=== PATIENT | male | born 1950 | race Caucasian/White ===

== ENCOUNTER 2016-09-24 10:00 | Inpatient (IN) | payer MEDICARE ==
[2016-09-24] VITALS (10 sets, daily range): BP systolic 115–134; BP diastolic 70–80
[~2016-09-24] VITALS: Ht 182.9 cm; Wt 104.8 kg
[~2016-09-24 10:00] MED LIST: HYDROmorphone 2 MG/ML VIAL IV PRN; LIDOCAINE 1% 1 ML SYRINGE. ID PRN; MORPHINE SULFATE 2 MG/ML DISP.SYRIN. IV PRN; ONDANSETRON PF 4 MG/2 ML VIAL. IV PRN; PROCHLORPERAZINE 10 MG/2 ML VIAL. IV PRN; fentaNYL PF VIAL 100 MCG/2 ML VIAL IV PRN
[2016-09-24] MEDS: IV RINGERS,LACTATED 1000ML 1,000 ML IV SCH ×2 (11:12→17:23)
[2016-09-24] MEDS ORDERED: PROPOFOL 20 ML IV ONE (11:23)
[2016-09-24] MEDS ORDERED: ROCURONIUM 50 MG/5 ML VIAL. ONE ×2 (11:23→13:25)
[2016-09-24] MEDS ORDERED: ONDANSETRON PF 4 MG/2 ML VIAL. ONE (11:23)
[2016-09-24] MEDS ORDERED: LIDOCAINE 2% PF Vial for OR 5 ML VIAL. ONE (11:23)
[2016-09-24] MEDS ORDERED: fentaNYL PF VIAL 100 MCG/2 ML VIAL ONE ×2 (11:23→15:30)
[2016-09-24] MEDS ORDERED: DESFLURANE > 120 MINUTES IH ONE (11:23)
[2016-09-24] MEDS ORDERED: DEXAMETHASONE SOD PHOS 20 MG/5 ML VIAL. ONE (11:23)
[2016-09-24] MEDS ORDERED: MIDAZOLAM HCL/PF 2 MG/2 ML VIAL. ONE (12:18)
[2016-09-24] MEDS ORDERED: PHENYLEPHRINE in 0.9% NACL PF 1 MG/10 ML DISP.SYRIN. IV ONE (12:46)
[2016-09-24] MEDS ORDERED: ePHEDrine PF IN SALINE 50 MG/5 ML DISP.SYRIN IV ONE (13:20)
[2016-09-24] MEDS ORDERED: LIDOCAINE 2% TOPICAL JELLY 30GM TUBE. TP ONE (13:42)
[2016-09-24] MEDS ORDERED: GLYCOPYRROLATE 1 MG/5 ML VIAL. ONE (13:43)
[2016-09-24] MEDS ORDERED: NEOSTIGMINE METHYLSULFATE 5 MG/5 ML SYRINGE. ONE (13:44)
[2016-09-24] MEDS ORDERED: MORPHINE SULFATE 10 MG/ML VIAL. ONE (14:03)
[2016-09-24] MEDS ORDERED: 0.9 % SODIUM CHLORIDE 10 ML DISP.SYRIN. IV PRN (15:30)
[2016-09-24] MEDS ORDERED: diphenhydrAMINE 50 MG/ML VIAL IV PRN (15:30)
--- NOTE | 2016-09-24 15:32 | RAD ---
Indication: Postop sigmoid resection. Time of exam 1519 hours. A portable view of the abdomen was obtained. A surgical drain overlies the pelvis. No unexpected radiopaque foreign object is identified. The bowel gas pattern is unremarkable. Impression: No acute feature detected.
--- NOTE | 2016-09-24 16:08 | PDOC ---
BRIEF OPERATIVE NOTE Date: Sep 24, 2016 Pre-Op Diagnosis carcinoma sigmoid colon Post-Op Diagnosis same Procedure Performed rigid procto sigmoid resection "ghost" ileostomy Surgeon Everardo ZURITA Anesthesia Type: General Blood Loss 100cc IV Fluid 2100cc Urine Output 200cc Specimens Obtained sigmoid colon Findings large mass, mid-distal sigmoid Complications none ANÍBAL MUKHERJEE MD Sep 24, 2016 16:08
[2016-09-24] MEDS: fentaNYL PF VIAL 100 MCG/2 ML VIAL IV PRN ×2 (16:37→17:23)
[2016-09-24] MEDS: POTASSIUM CL 20MEQ-0.45% NACL 1,000 ML IV SCH (20:19)
[2016-09-25 03:20] VITALS: BP 105/68
[2016-09-25] MEDS: POTASSIUM CL 20MEQ-0.45% NACL 1,000 ML IV SCH ×2 (05:27→16:01)
[2016-09-25 07:00] VITALS: BP 116/73
[2016-09-25] MEDS: ENOXAPARIN 40 MG/0.4 ML SYRINGE. SQ SCH (08:29)
[2016-09-25 11:00] VITALS: BP_SYST 111; BP_SYST 118; BP_DIAS 71; BP_DIAS 75
[2016-09-25] MEDS: ONDANSETRON PF 4 MG/2 ML VIAL. IV PRN (12:45)
--- NOTE | 2016-09-25 12:45 | PDOC ---
LILI CARMONA APRN 09/25/16 1244: SURGICAL PROGRESS NOTE Subjective some nausea this AM no flatus pain managed Vital Signs Vital Signs Date Time Temp Pulse Resp B/P (MAP) Pulse Ox O2 Delivery O2 Flow Rate FiO2 09/25/16 07:45 Nasal Cannula 2.0 09/25/16 07:00 97.9 79 18 116/73 (87) 96 97.9 I&O Intake and Output 09/25/16 07:00 Intake Total 3110 ml Output Total 1370 ml Balance 1740 ml Intake Oral 10 ml IV Total 3100 ml Output Urine Total 1240 ml Drainage Total 30 ml Estimated Blood Loss 100 ml PATIENT HAS A MAYORGA: Yes (dc POD#2) General: Alert, Oriented X3, Cooperative, No acute distress Abdomen: Soft, Other (incision dressing dry, 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
[2016-09-25 15:00] VITALS: BP 131/79
[2016-09-25 19:05] VITALS: BP 126/73
[2016-09-25 23:25] VITALS: BP 158/81
[2016-09-26 03:18] VITALS: BP 117/81
[2016-09-26 07:41] VITALS: BP 132/76
[2016-09-26] MEDS: ENOXAPARIN 40 MG/0.4 ML SYRINGE. SQ SCH (08:20)
[2016-09-26] MEDS: POTASSIUM CL 20MEQ-0.45% NACL 1,000 ML IV SCH ×3 (08:20→20:37)
[2016-09-26 10:35] VITALS: BP 128/85
[2016-09-26] MEDS: ONDANSETRON PF 4 MG/2 ML VIAL. IV PRN (11:34)
--- NOTE | 2016-09-26 13:18 | PDOC ---
SURGICAL PROGRESS NOTE Subjective up to chair a little nausea at end of his walk, otherwise doing well Vital Signs Vital Signs Date Time Temp Pulse Resp B/P (MAP) Pulse Ox O2 Delivery O2 Flow Rate FiO2 09/26/16 10:35 98.0 82 20 128/85 (99) 94 Nasal Cannula 2.5 98.0 I&O Intake and Output 09/26/16 06:59 Intake Total 120 ml Output Total 2295 ml Balance -2175 ml Intake Oral 120 ml Output Urine Total 2250 ml Drainage Total 45 ml PATIENT HAS A MAYORGA: No General: Alert, Oriented X3, No acute distress Abdomen: Soft Assessment/Plan POD 2 sigmoid resection start clears Dr Cruz to follow over the weekend Problems: ANÍBAL MUKHERJEE MD Sep 26, 2016 13:18
[2016-09-26 15:01] VITALS: BP 137/85
[2016-09-26 19:00] VITALS: BP 147/91
[2016-09-26 23:00] VITALS: BP 137/80
[2016-09-27 03:00] VITALS: BP 125/86
[2016-09-27 07:00] VITALS: BP 144/86
[2016-09-27 07:59] LABS: CREATININE 0.9 mg/dL (0.7-1.3); GFR 84.2
[2016-09-27] MEDS: ENOXAPARIN 40 MG/0.4 ML SYRINGE. SQ SCH (09:13)
[2016-09-27] MEDS: POTASSIUM CL 20MEQ-0.45% NACL 1,000 ML IV SCH ×2 (09:14→18:24)
--- NOTE | 2016-09-27 10:04 | PDOC ---
LILI CARMONA APRN 09/27/16 1004: SURGICAL PROGRESS NOTE Subjective nausea, bloating with clears no flatus Vital Signs Vital Signs Date Time Temp Pulse Resp B/P (MAP) Pulse Ox O2 Delivery O2 Flow Rate FiO2 09/27/16 09:12 93 Nasal Cannula 2.5 09/27/16 07:00 97.5 82 18 144/86 (105) 97.5 I&O Intake and Output 09/27/16 06:59 Intake Total 1300 ml Output Total 1210 ml Balance 90 ml IV Total 1300 ml Output Urine Total 1200 ml Drainage Total 10 ml # Voids 1 PATIENT HAS A MAYORGA: No General: Alert, Oriented X3, Cooperative, No acute distress Abdomen: Soft, Other (dressing dry, keshav serosang) Labs Laboratory Tests Test 09/27/16 07:01 Creatinine 0.9 mg/dL (0.7-1.3) Estimated GFR (Cockcroft-Gault) 84.2 Laboratory Tests Test 09/27/16 07:01 Creatinine 0.9 mg/dL (0.7-1.3) Estimated GFR (Cockcroft-Gault) 84.2 Assessment/Plan POD#3 sigmoid resection await bowel function, back down to ice chips/sips due to nausea, distention Problems: ALTHEA SHAH MD 09/27/16 1652: SURGICAL PROGRESS NOTE Assessment/Plan Agree with above Problems: LILI CARMONA APRN Sep 27, 2016 10:04 ALTHEA SHAH MD Sep 27, 2016 16:52
[2016-09-27 11:00] VITALS: BP 155/96
[2016-09-27] MEDS: ONDANSETRON PF 4 MG/2 ML VIAL. IV PRN (13:14)
[2016-09-27 15:01] VITALS: BP 152/93
[2016-09-27 19:25] VITALS: BP 148/95
[2016-09-27 23:20] VITALS: BP 149/94
[2016-09-28] MEDS: ONDANSETRON PF 4 MG/2 ML VIAL. IV PRN ×2 (04:44→10:23)
[2016-09-28] MEDS: POTASSIUM CL 20MEQ-0.45% NACL 1,000 ML IV SCH ×3 (04:44→23:23)
[2016-09-28 07:00] VITALS: BP 152/110
--- NOTE | 2016-09-28 09:02 | PDOC ---
LILI CARMONA APRN 09/28/16 0902: SURGICAL PROGRESS NOTE Subjective + flatus no n/v some burning with urination Vital Signs Vital Signs Date Time Temp Pulse Resp B/P (MAP) Pulse Ox O2 Delivery O2 Flow Rate FiO2 09/28/16 07:00 98.5 100 20 152/110 (124) 94 Room Air 98.5 09/27/16 09:12 2.5 I&O Intake and Output 09/28/16 07:00 Intake Total 1203.5 ml Output Total 1930 ml Balance -726.5 ml Intake Oral 25 ml IV Total 1178.5 ml Output Urine Total 1850 ml Drainage Total 80 ml PATIENT HAS A MAYORGA: No General: Alert, Oriented X3, Cooperative, No acute distress Abdomen: Soft, Other (incision dressing dry, BRYSON serosang ) Labs Laboratory Tests Test 09/27/16 07:01 Creatinine 0.9 mg/dL (0.7-1.3) Estimated GFR (Cockcroft-Gault) 84.2 Problem List s/p sigmoid resection some bowel function, start clears increase activity Problems: ALTHEA SHAH MD 09/28/16 1134: SURGICAL PROGRESS NOTE Assessment/Plan Agree with above Problems: LILI CARMONA APRN Sep 28, 2016 09:02 ALTHEA SHAH MD Sep 28, 2016 11:34
[2016-09-28] MEDS: ENOXAPARIN 40 MG/0.4 ML SYRINGE. SQ SCH ×2 (09:45→10:23)
[2016-09-28 11:00] VITALS: BP 162/98
[2016-09-28 15:00] VITALS: BP 151/97
[2016-09-28 19:00] VITALS: BP 142/98
[2016-09-28 23:00] VITALS: BP 161/117
[2016-09-29 03:00] VITALS: BP 164/117
[2016-09-29] MEDS: ONDANSETRON PF 4 MG/2 ML VIAL. IV PRN ×2 (03:41→15:56)
[2016-09-29 07:00] VITALS: BP 162/107
[2016-09-29 09:32] LABS: BASO % 0 % (0-3); EOS % 0 % (0-3); HEMATOCRIT 43.4 % (39.0-53.0); HEMOGLOBIN 14.9 g/dL (13.0-17.5); LYMPH # 1.1 x10^3/uL (1.0-4.8); LYMPH % 10 % (24-48); MEAN CORPUSCULAR HEMOGLOBIN 28 pg (25-35); MEAN CORPUSCULAR HGB CONC 34 g/dL (31-37); MEAN CORPUSCULAR VOLUME 83 fL (79-100); MONO % 9 % (0-9); NEUT % 81 % (31-73); PLATELET COUNT 280 x10^3/uL (140-400); RED BLOOD COUNT 5.25 x10^6/uL (4.30-5.70); RED CELL DISTRIBUTION WIDTH 14.1 % (11.5-14.5); WHITE BLOOD COUNT 11.2 x10^3/uL (4.0-11.0)
[2016-09-29 09:39] LABS: CALCIUM 8.1 mg/dL (8.5-10.1); CREATININE 0.9 mg/dL (0.7-1.3); GFR 84.2; POTASSIUM 4.6 mmol/L (3.5-5.1)
[2016-09-29] MEDS: ENOXAPARIN 40 MG/0.4 ML SYRINGE. SQ SCH (10:02)
[2016-09-29] MEDS: POTASSIUM CL 20MEQ-0.45% NACL 1,000 ML IV SCH ×2 (10:02→21:23)
[2016-09-29 11:06] VITALS: BP 166/96
--- NOTE | 2016-09-29 12:36 | PDOC ---
LILI CARMONA CANOPY INSPECTOR 09/29/16 1236: SURGICAL PROGRESS NOTE Subjective sitting in bathroom, getting ready to shower some intermittent nausea, yesterday liquids were ok although today says has not taken much today, does not make him feel good he was very brief and short, he was headed to bathroom Vital Signs Vital Signs Date Time Temp Pulse Resp B/P (MAP) Pulse Ox O2 Delivery O2 Flow Rate FiO2 09/29/16 11:06 98.1 91 18 166/96 (119) 94 Room Air 98.1 I&O Intake and Output 09/29/16 07:00 Output Total 900 ml Balance -900 ml Output Urine Total 900 ml # Voids 1 General: Alert, Oriented X3, Cooperative, No acute distress Abdomen: Soft, Other (keshav serosang) Labs Laboratory Tests Test 09/29/16 08:50 White Blood Count 11.2 x10^3/uL (4.0-11.0) Red Blood Count 5.25 x10^6/uL (4.30-5.70) Hemoglobin 14.9 g/dL (13.0-17.5) Hematocrit 43.4 % (39.0-53.0) Mean Corpuscular Volume 83 fL (79-100) Mean Corpuscular Hemoglobin 28 pg (25-35) Mean Corpuscular Hemoglobin Concent 34 g/dL (31-37) Red Cell Distribution Width 14.1 % (11.5-14.5) Platelet Count 280 x10^3/uL (140-400) Neutrophils (%) (Auto) 81 % (31-73) Lymphocytes (%) (Auto) 10 % (24-48) Monocytes (%) (Auto) 9 % (0-9) Eosinophils (%) (Auto) 0 % (0-3) Basophils (%) (Auto) 0 % (0-3) Neutrophils # (Auto) 9.1 x10^3uL (1.8-7.7) Lymphocytes # (Auto) 1.1 x10^3/uL (1.0-4.8) Monocytes # (Auto) 1.0 x10^3/uL (0.0-1.1) Eosinophils # (Auto) 0.0 x10^3/uL (0.0-0.7) Basophils # (Auto) 0.0 x10^3/uL (0.0-0.2) Sodium Level 135 mmol/L (136-145) Potassium Level 4.6 mmol/L (3.5-5.1) Chloride Level 99 mmol/L (98-107) Carbon Dioxide Level 27 mmol/L (21-32) Anion Gap 9 (6-14) Blood Urea Nitrogen 14 mg/dL (8-26) Creatinine 0.9 mg/dL (0.7-1.3) Estimated GFR (Cockcroft-Gault) 84.2 Glucose Level 103 mg/dL (70-99) Calcium Level 8.1 mg/dL (8.5-10.1) Laboratory Tests Test 09/29/16 08:50 White Blood Count 11.2 x10^3/uL (4.0-11.0) Red Blood Count 5.25 x10^6/uL (4.30-5.70) Hemoglobin 14.9 g/dL (13.0-17.5) Hematocrit 43.4 % (39.0-53.0) Mean Corpuscular Volume 83 fL (79-100) Mean Corpuscular Hemoglobin 28 pg (25-35) Mean Corpuscular Hemoglobin Concent 34 g/dL (31-37) Red Cell Distribution Width 14.1 % (11.5-14.5) Platelet Count 280 x10^3/uL (140-400) Neutrophils (%) (Auto) 81 % (31-73) Lymphocytes (%) (Auto) 10 % (24-48) Monocytes (%) (Auto) 9 % (0-9) Eosinophils (%) (Auto) 0 % (0-3) Basophils (%) (Auto) 0 % (0-3) Neutrophils # (Auto) 9.1 x10^3uL (1.8-7.7) Lymphocytes # (Auto) 1.1 x10^3/uL (1.0-4.8) Monocytes # (Auto) 1.0 x10^3/uL (0.0-1.1) Eosinophils # (Auto) 0.0 x10^3/uL (0.0-0.7) Basophils # (Auto) 0.0 x10^3/uL (0.0-0.2) Sodium Level 135 mmol/L (136-145) Potassium Level 4.6 mmol/L (3.5-5.1) Chloride Level 99 mmol/L (98-107) Carbon Dioxide Level 27 mmol/L (21-32) Anion Gap 9 (6-14) Blood Urea Nitrogen 14 mg/dL (8-26) Creatinine 0.9 mg/dL (0.7-1.3) Estimated GFR (Cockcroft-Gault) 84.2 Glucose Level 103 mg/dL (70-99) Calcium Level 8.1 mg/dL (8.5-10.1) Assessment/Plan s/p resection labs stable continue liquids, will review with Dr Mukherjee Problems: ANÍBAL MUKHERJEE MD 09/29/16 1255: SURGICAL PROGRESS NOTE Assessment/Plan pt seen and examined just back from a shower spoke with Pathology T3N0, clear margins advance diet Problems: LILI CARMONA APRN Sep 29, 2016 12:36 ANÍBAL MUKHERJEE MD Sep 29, 2016 12:55
[2016-09-29 14:41] VITALS: BP 143/92
--- NOTE | 2016-09-29 15:09 | PATHOLOGY ---
PATHOLOGY REPORT * * * * * * * * FINAL DIAGNOSIS: Sigmoid colon and proximal rectum with attached mesocolic and perirectal soft tissues, and separate segments of adipose tissue, rectosigmoid colon resection: - COLORECTAL ADENOCARCINOMA, MODERATELY DIFFERENTIATED, INVASIVE, FORMING A NEARLY CIRCUMFERENTIAL CENTRALLY ULCERATED TUMOR MASS OF THE DISTAL SIGMOID COLON MEASURING UP TO 8.0 CM IN GREATEST DIMENSION, WITH TUMOR INVASION OF MUSCULARIS PROPRIA AND FOCAL TUMOR INVASION THROUGH MUSCULARIS PROPRIA INTO MESOCOLIC SOFT TISSUES. SEE SYNOPTIC REPORT. - TUMOR IS APPROXIMATELY 2.0 CM FROM THE CLOSEST INKED CIRCUMFERENTIAL RADIAL MESOCOLIC MARGIN OF RESECTION. - Proximal and distal margins of resection negative for tumor. - Nineteen mesocolic/mesorectal lymph nodes negative for tumor. - Focal cystic fat necrosis of separate segments of adipose tissue. (JPM/db; 09/27/2016) SPECIMEN Specimen: Sigmoid colon Rectum Procedure: Low anterior resection Macroscopic Intactness of Mesorectum: Complete TUMOR Primary Tumor Site: Sigmoid colon Histologic Type: Adenocarcinoma Histologic Grade: Low-grade (well differentiated to moderately differentiated) Tumor Size: Greatest dimension (cm): 8.0 Tumor Deposits: Not identified Tumor Extent Site(s) of Direct Extent of Tumor: None identified Microscopic Tumor Extension: Tumor invades through the muscularis propria into the subserosal adipose tissue or the nonperitonealized pericolic or perirectal soft tissues but does not extend to the serosal surface Macroscopic Tumor Perforation: Not Identified Accessory Tumor Findings Lymph-Vascular Invasion: Not identified Perineural Invasion: Not identified Type of Polyp in Which Invasive Carcinoma Arose: None identified MARGINS All margins uninvolved by invasive carcinoma Distance of Invasive Carcinoma from Closest Margin: Specify (cm): 2.0 Specify Margin: Circumferential (Radial) or Mesenteric For Resection Specimens Only Proximal Margin: Uninvolved by invasive carcinoma Distance of Tumor from Margin: Specify (cm): 4.0 Distal Margin: Uninvolved by invasive carcinoma Distance of Tumor from Margin (required only for rectal tumors): Specify (cm): 8.5 Circumferential (Radial) Margin: Uninvolved by invasive carcinoma Distance of Tumor from Margin (required only for rectal tumors): Specify (cm): 2.0 Mesenteric Margin: Not applicable: . LYMPH NODES Regional Lymph Nodes: Number of Lymph Nodes Examined: Specify number: 19 Number of Lymph Nodes Involved: Specify number: 0 STAGE (PTNM) Primary Tumor (pT): pT3: Tumor invades through the muscularis propria into pericolorectal tissues Regional Lymph Nodes (pN): pN0: No regional lymph node metastasis ADDITIONAL FINDINGS Additional Pathologic Findings: None identified REPORT ELECTRONICALLY SIGNED BY: Curtis Walter M.D. DATE/TIME: 09/29/2016 15:08 * * * * * * * * GROSS PATHOLOGY: The specimen is received fresh for intraoperative consultation and is designated "rectosigmoid". This consists of a segment of sigmoid colon and proximal rectum with attached mesocolon and perirectal soft tissues. There is a suture attached to the proximal end. The segment is stapled closed at both ends. The specimen measures approximately 17 cm in length and is up to 9.0 cm in width in the mid portion. The peritoneal reflection is approximately 4.5 cm from the distal end. There is a palpable mass within the distal sigmoid colon within the mid portion of the specimen. The anti-mesocolic serosa is pinkish-brown and erythematous. The segment is opened longitudinally. Arising approximately 4.0 cm from the closest proximal margin of resection, there is a nearly circumferential, centrally ulcerated, pink to reddish elise tumor mass having raised rolled borders. The tumor measures up to 8.0 cm in width and is 4.5 cm in length. The tumor is fixed to the muscular wall. The circumferential radial margin is grossly free of neoplasm, and is inked blue in the region of the tumor. The remaining colonic mucosa is pink to hurd-elise and transversely folded. There are no polyps or tumor masses. Also received within the specimen container are two smaller and one larger segment of yellow-red fatty-appearing tissue. The smaller segments measure 2.7 and 3.3 cm in greatest dimension, and the largest measures up to 12.0 x 4.7 x 1.3 cm. One of the smaller segments has a grayish-brown nodular area at one end measuring up to 2.0 cm, which on sectioning contains a yellowish-brown liquidy material suspicious for fat necrosis. (MLG; 09/24/2016) The specimen is fixed overnight in formalin. On sectioning, the tumor has a elise firm cut surface and measures up to 1.3 cm in thickness. The tumor deeply invades the muscular wall and appears to extend just into the mesocolic fat. The tumor is approximately 2 cm from the closest circumferential radial mesocolic margin of resection. There are several pink-elise lymph nodes within the attached mesocolon showing no gross evidence of tumor involvement. Sections are submitted as follows: A1 proximal margin of resection A2 distal margin of resection A3-A6 sections of tumor A7 financial service representative sections from uninvolved colon A8 section from area of apparent fat necrosis A9-A11 local regional mesocolic lymph nodes A12 additional mesocolic lymph nodes (JPM:mgr/db; 09/25/2016) INTRAOPERATIVE CONSULTATION (Frederick Walter MD) Sigmoid colon and proximal rectum with attached mesocolon and perirectal soft tissues, rectosigmoid colon resection: - ULCERATED CARCINOMA OF DISTAL SIGMOID COLON - MARGINS OF RESECTION GROSSLY FREE OF NEOPLASM. - The specimen displayed to Dr. Mcgee in the operating room. (JPM:mmcésar; 09/25/2016) Testing performed [place] [facility] [place] [address] INITIAL CPT CODE(S): A; 45469, 35318 Professional services performed [place] [address] Technical services performed by [facility] at [address] [place] [address] [address], [place] [address]. SPECIMEN(S) RECEIVED: A.Rectal/sigmoid CLINICAL HISTORY: Colon cancer PATIENT: JOEL DENTON /AGE: 407/18/1950 (Age: 66) PATIENT #: [id number] ALT CASE #: SPECIMEN COLLECTION DATE: 09/24/2016 SPECIMEN RECEIVED DATE: 09/24/2016 [facility] - [id number] [place] [address] - PHONE: [phone] * * * END OF REPORT * * *
[2016-09-29 19:17] VITALS: BP 163/103
[2016-09-29] MEDS ORDERED: LABETALOL 20 MG/4 ML DISP.SYRIN. IVP PRN (21:45)
[2016-09-29] MEDS: FAMOTIDINE 20 MG/2 ML VIAL IVP SCH (21:58)
[2016-09-29 23:15] VITALS: BP 156/98
[2016-09-30 03:15] VITALS: BP 134/89
[2016-09-30] MEDS: ONDANSETRON PF 4 MG/2 ML VIAL. IV PRN ×2 (03:54→17:05)
[2016-09-30] MEDS: POTASSIUM CL 20MEQ-0.45% NACL 1,000 ML IV SCH ×2 (03:54→14:00)
[2016-09-30 07:00] VITALS: BP 150/94
--- NOTE | 2016-09-30 08:38 | PDOC ---
SURGICAL PROGRESS NOTE Subjective on fulls, has not eaten yet this AM took some po yesterday--does not much like the food, some nausea + flatus no stool yet Vital Signs Vital Signs Date Time Temp Pulse Resp B/P (MAP) Pulse Ox O2 Delivery O2 Flow Rate FiO2 09/30/16 07:00 97.7 84 20 150/94 (112) 93 Room Air 97.7 I&O Intake and Output 09/30/16 07:00 Intake Total 500 ml Output Total 1380 ml Balance -880 ml Intake Oral 500 ml Output Urine Total 1300 ml Drainage Total 80 ml General: Alert, Oriented X3, Cooperative, No acute distress Abdomen: Soft, Other (dressing dry, BRYSON serosang ) Labs Laboratory Tests Test 09/29/16 08:50 White Blood Count 11.2 x10^3/uL (4.0-11.0) Red Blood Count 5.25 x10^6/uL (4.30-5.70) Hemoglobin 14.9 g/dL (13.0-17.5) Hematocrit 43.4 % (39.0-53.0) Mean Corpuscular Volume 83 fL (79-100) Mean Corpuscular Hemoglobin 28 pg (25-35) Mean Corpuscular Hemoglobin Concent 34 g/dL (31-37) Red Cell Distribution Width 14.1 % (11.5-14.5) Platelet Count 280 x10^3/uL (140-400) Neutrophils (%) (Auto) 81 % (31-73) Lymphocytes (%) (Auto) 10 % (24-48) Monocytes (%) (Auto) 9 % (0-9) Eosinophils (%) (Auto) 0 % (0-3) Basophils (%) (Auto) 0 % (0-3) Neutrophils # (Auto) 9.1 x10^3uL (1.8-7.7) Lymphocytes # (Auto) 1.1 x10^3/uL (1.0-4.8) Monocytes # (Auto) 1.0 x10^3/uL (0.0-1.1) Eosinophils # (Auto) 0.0 x10^3/uL (0.0-0.7) Basophils # (Auto) 0.0 x10^3/uL (0.0-0.2) Sodium Level 135 mmol/L (136-145) Potassium Level 4.6 mmol/L (3.5-5.1) Chloride Level 99 mmol/L (98-107) Carbon Dioxide Level 27 mmol/L (21-32) Anion Gap 9 (6-14) Blood Urea Nitrogen 14 mg/dL (8-26) Creatinine 0.9 mg/dL (0.7-1.3) Estimated GFR (Cockcroft-Gault) 84.2 Glucose Level 103 mg/dL (70-99) Calcium Level 8.1 mg/dL (8.5-10.1) Laboratory Tests Test 09/29/16 08:50 White Blood Count 11.2 x10^3/uL (4.0-11.0) Red Blood Count 5.25 x10^6/uL (4.30-5.70) Hemoglobin 14.9 g/dL (13.0-17.5) Hematocrit 43.4 % (39.0-53.0) Mean Corpuscular Volume 83 fL (79-100) Mean Corpuscular Hemoglobin 28 pg (25-35) Mean Corpuscular Hemoglobin Concent 34 g/dL (31-37) Red Cell Distribution Width 14.1 % (11.5-14.5) Platelet Count 280 x10^3/uL (140-400) Neutrophils (%) (Auto) 81 % (31-73) Lymphocytes (%) (Auto) 10 % (24-48) Monocytes (%) (Auto) 9 % (0-9) Eosinophils (%) (Auto) 0 % (0-3) Basophils (%) (Auto) 0 % (0-3) Neutrophils # (Auto) 9.1 x10^3uL (1.8-7.7) Lymphocytes # (Auto) 1.1 x10^3/uL (1.0-4.8) Monocytes # (Auto) 1.0 x10^3/uL (0.0-1.1) Eosinophils # (Auto) 0.0 x10^3/uL (0.0-0.7) Basophils # (Auto) 0.0 x10^3/uL (0.0-0.2) Sodium Level 135 mmol/L (136-145) Potassium Level 4.6 mmol/L (3.5-5.1) Chloride Level 99 mmol/L (98-107) Carbon Dioxide Level 27 mmol/L (21-32) Anion Gap 9 (6-14) Blood Urea Nitrogen 14 mg/dL (8-26) Creatinine 0.9 mg/dL (0.7-1.3) Estimated GFR (Cockcroft-Gault) 84.2 Glucose Level 103 mg/dL (70-99) Calcium Level 8.1 mg/dL (8.5-10.1) Assessment/Plan s/p sigmoid resection 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
[2016-09-30] MEDS ORDERED: HYDROmorphone 2 MG/ML VIAL IVP PRN (08:45)
[2016-09-30] MEDS: oxyCODONE/APAP 5/325 1 TAB TABLET PO PRN ×4 (09:28→21:09)
[2016-09-30] MEDS ORDERED: cloNIDine HCL 0.1 MG TABLET PO PRN (09:45)
--- NOTE | 2016-09-30 10:37 | PDOC2 ---
CONSULT Date of Consult Date of Consult DATE: 09/30/16 TIME: 10:33 Reason for Consult Reason for Consult: IM co mx Referring Physician Referring Physician: RICKEY Identification/Chief Complaint Chief Complaint high BP Problems: Source Source: Caregiver, Chart review History of Present Illness Reason for Visit: 66 y.o male, underwent scheduled sigmoid resection for sigmod CA. 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 LAbs ok except for mild WBC 11, no fevers. As per RN no issues, BP on high side, MAR reviewed., Past Medical History Cardiovascular: HTN Heme/Onc: Cancer Past Surgical History Past Surgical History: Colon Resection Family History Family History: High Cholestrol, Hypertension Social History No ALCOHOL: none Drugs: None Lives: with Family Domestic Violence: Neg Current Medications Current Medications Current Medications Ondansetron HCl (Zofran) 4 mg PRN Q6HRS PRN IV NAUSEA/VOMITING; Start 09/24/16 at 07:00; Stop 09/24/16 at 18:00; Status DC Fentanyl Citrate (Fentanyl 2ml Vial) 25 mcg PRN Q5MIN PRN IV MILD PAIN; Start 09/24/16 at 07:00; Stop 09/24/16 at 18:00; Status DC Fentanyl Citrate (Fentanyl 2ml Vial) 50 mcg PRN Q5MIN PRN IV MODERATE PAIN Last administered on 09/24/16 17:23; Start 09/24/16 at 07:00; Stop 09/24/16 at 18:00; Status DC Morphine Sulfate 1 mg PRN Q10MIN PRN IV SEVERE PAIN; Start 09/24/16 at 07:00; Stop 09/24/16 at 18:00; Status DC Ringer's Solution 1,000 ml @ 30 mls/hr Q24H IV Last administered on 09/24/16 17:23; Start 09/24/16 at 07:00; Stop 09/24/16 at 18:59; Status DC Lidocaine HCl 2 ml PRN 1X PRN ID PRIOR TO IV START; Start 09/24/16 at 07:00; Stop 09/24/16 at 18:00; Status DC Hydromorphone HCl (Dilaudid) 0.5 mg PRN Q10MIN PRN IV SEV PAIN, Second choice; Start 09/24/16 at 07:00; Stop 09/24/16 at 18:00; Status DC Prochlorperazine Edisylate (Compazine) 5 mg PACU PRN PRN IV NAUSEA, MRX1 Last administered on 09/24/16t 16:36; Start 09/24/16 at 07:00; Stop 09/24/16 at 18:00 ; Status DC Cefoxitin Sodium 50 ml @ 100 mls/hr 1X PREOP PRN IV PRIOR TO PROCEDURE Last administered on 09/24/16t 14:48; Start 09/24/16 at 06:00; Stop 09/24/16 at 18:00 ; Status DC Dexamethasone Sodium Phosphate (Decadron) 20 mg STK-MED ONCE .ROUTE ; Start at 11:23; Stop 09/24/16 at 11:24; Status DC Ondansetron HCl (Zofran) 4 mg STK-MED ONCE .ROUTE ; Start 09/24/16 at 11:23; Stop 09/24/16 at 11:24; Status DC Propofol 20 ml @ As Directed STK-MED ONCE IV ; Start 09/24/16 at 11:23; Stop at 11:24; Status DC Lidocaine HCl (Lidocaine Pf 2% Vial) 5 ml STK-MED ONCE .ROUTE ; Start 09/24/16 at 11:23; Stop 09/24/16 at 11:24; Status DC Desflurane (Suprane) 90 ml STK-MED ONCE IH ; Start 09/24/16 at 11:23; Stop 09/24 at 11:24; Status DC Fentanyl Citrate (Fentanyl 2ml Vial) 100 mcg STK-MED ONCE .ROUTE ; Start at 11:23; Stop 09/24/16 at 11:24; Status DC Rocuronium [place] (Zemuron) 50 mg STK-MED ONCE .ROUTE ; Start 09/24/16 at 11:23 ; Stop 09/24/16 at 11:24; Status DC Midazolam HCl (Versed) 2 mg STK-MED ONCE .ROUTE ; Start 09/24/16 at 12:18; Stop 09/24/16 at 12:19; Status DC Phenylephrine HCl 1 mg STK-MED ONCE IV ; Start 09/24/16 at 12:46; Stop 09/24/16 at 12:47; Status DC Ephedrine Sulfate 50 mg STK-MED ONCE IV ; Start 09/24/16 at 13:20; Stop at 13:21; Status DC Rocuronium [place] (Zemuron) 50 mg STK-MED ONCE .ROUTE ; Start 09/24/16 at 13:25 ; Stop 09/24/16 at 13:26; Status DC Lidocaine HCl (Xylocaine 2% Topical 30gm Tube) 30 roni STK-MED ONCE TP ; Start at 13:42; Stop 09/24/16 at 13:43; Status DC Glycopyrrolate (Robinul) 1 mg STK-MED ONCE .ROUTE ; Start 09/24/16 at 13:43; Stop 09/24/16 at 13:44; Status DC Neostigmine Methylsulfate 5 mg STK-MED ONCE .ROUTE ; Start 09/24/16 at 13:44; Stop 09/24/16 at 13:45; Status DC Morphine Sulfate 10 mg STK-MED ONCE .ROUTE ; Start 09/24/16 at 14:03; Stop 09/24 at 14:04; Status DC Cefazolin Sodium 0 ml @ As Directed STK-MED ONCE IV ; Start 09/24/16 at 14:49; Stop 09/24/16 at 14:50; Status Cancel Fentanyl Citrate (Fentanyl 2ml Vial) 100 mcg STK-MED ONCE .ROUTE ; Start at 15:30; Stop 09/24/16 at 15:31; Status DC Diphenhydramine HCl (Benadryl) 25 mg PRN Q6HRS PRN IV ITCHING; Start 09/24/16 at 15:30 Enoxaparin Sodium (Lovenox 40mg Syringe) 40 mg Q24H SQ Last administered on 09/29 10:02; Start 09/25/16 at 09:00 Sodium Chloride (Normal Saline Flush) 3 ml QSHIFT PRN IV AFTER MEDS AND BLOOD DRAWS; Start 09/24/16 at 15:30 Potassium Chloride/Sodium Chloride 1,000 ml @ 100 mls/hr Q10H IV Last administered on 09/30/16 03:54; Start 09/24/16 at 18:00 Hydromorphone HCl 30 ml @ 0 mls/hr CONT PRN PRN IV PROTOCOL Last administered on 09/28/16 23:30; Start 09/24/16 at 15:30; Stop 09/30/16 at 08:37; Status DC Ondansetron HCl (Zofran) 4 mg PRN Q6HRS PRN IV NAUESA, 1ST CHOICE Last administered on 09/30/16 03:54; Start 09/24/16 at 15:30 Labetalol HCl (Normodyne) 20 mg PRN Q2HR PRN IVP HYPERTENSION, SEE COMMENTS Last administered on 09/29/16 21:59; Start 09/29/16 at 21:45 Famotidine (Pepcid) 20 mg QHS IVP Last administered on 09/29/16 21:58; Start at 21:45 Oxycodone/ Acetaminophen (Percocet 5/325) 1 tab PRN Q4HRS PRN PO PAIN Last administered on 09/30/16 09:28; Start 09/30/16 at 08:45 Hydromorphone HCl (Dilaudid) 0.4 mg PRN Q4HRS PRN IVP PAIN; Start 09/30/16 at 08 :45 Oxycodone/ Acetaminophen (Percocet 5/325) 2 tab PRN Q4HRS PRN PO PAIN; Start at 09:45 Clonidine HCl (Catapres) 0.1 mg PRN Q1HR PRN PO HYPERTENSION, SEE COMMENTS; Start 09/30/16 at 09:45 Active Scripts Active Reported No Known Medications Prior To Admisstion (Info) Each 1 Each Allergies Allergies: Coded Allergies: No Known Drug Allergies (Unverified , 09/24/16) ROS General: No: Chills, Night Sweats, Fatigue, Malaise, Appetite, Other PSYCHOLOGICAL ROS: No: Anxiety, Behavioral Disorder, Concentration difficultie , Decreased libido, Depression, Disorientation, Hallucinations, Hostility, Irritablity, Memory difficulties, Mood Swings, Obsessive thoughts, Physical abuse, Sexual abuse, Sleep disturbances, Suicidal ideation, Other Eyes: No Blurry vision, No Decreased vision, No Double vision, No Dry eyes, No Excessive tearing, No Eye Pain, No Itchy Eyes, No Loss of vision, No Photophobia , No Scotomata, No Uses contacts, No Uses glasses, No Other HEENT: No: Heacaches, Visual Changes, Hearing change, Nasal congestion, Nasal discharge, Oral lesions, Sinus pain, Sore Throat, Epistaxis, Sneezing, Snoring, Tinnitus, Vertigo, Vocal changes, Other ALLERGY AND IMMUNOLOGY: No: Hives, Insect Bite Sensitivity, Itchy/Watery Eyes, Nasal Congestion, Post Nasal Drip, Seasonal Allergies, Other Hematological and Lymphatic: No: Bleeding Problems, Blood Clots, Blood Transfusions, Brusing, Night Sweats, Pallor, Swollen Lymph Nodes, Other ENDOCRINE: No: Breast Changes, Galactorrhea, Hair Pattern Changes, Hot Flashes , Malaise/lethargy, Mood Swings, Palpitations, Polydipsia/polyuria, Skin Changes , Temperature Intolerance, Unexpected Weight Changes, Other Breast: No New/Changing Breast Lumps, No Nipple changes, No Nipple discharge, No Other Respiratory: No: Cough, Hemoptysis, Orthopnea, Pleuritic Pain, Shortness of breath, SOB with excertion, Sputum Changes, Stridor, Tachypnea, Wheezing, Other Cardiovascular: No Chest Pain, No Palpitations, No Orthopnea, No Paroxysmal Noc. Dyspnea, No Edema, No Lt Headedness, No Other Gastrointestinal: No Nausea, No Vomiting, No Abdominal Pain, No Diarrhea, No Constipation, No Melena, No Hematochezia, No Other Genitourinary: No Dysuria, No Frequency, No Incontinence, No Hematuria, No Retention, No Discharge, No Urgency, No Pain, No Flank Pain, No Other, No , No , No , No , No , No , No Musculoskeletal: No Gait Disturbance, No Joint Pain, No Joint Stiffness, No Joint Swelling, No Muscle Pain, No Muscular Weakness, No Pain In:, No Swelling In:, No Other Neurological: No Behavorial Changes, No Bowel/Bladder ControlChng, No Confusion , No Dizziness, No Gait Disturbance, No Headaches, No Impaired Coord/balance, No Memory Loss, No Numbness/Tingling, No Seizures, No Speech Problems, No Tremors, No Visual Changes, No Weakness, No Other Skin: No Dry Skin, No Eczema, No Hair Changes, No Lumps, No Mole Changes, No Mottling, No Nail Changes, No Pruritus, No Rash, No Skin Lesion Changes, No Other, No Acne Physical Exam General: Alert, Oriented X3, Cooperative, No acute distress HEENT: Atraumatic, PERRLA, Mucous membr. moist/pink Lungs: Clear to auscultation Heart: Regular rate, Normal S1, Normal S2 Abdomen: Normal bowel sounds, Soft, No tenderness, Other (dressing dry) Extremities: No clubbing, No cyanosis, No edema, Normal pulses, No tenderness/ swelling Skin: No rashes, No breakdown Neuro: Normal gait, Normal speech, Normal tone, Sensation intact, Reflexes 2+ Psych/Mental Status: Mental status NL, Mood NL Vitals VITALS Vital Signs Date Time Temp Pulse Resp B/P (MAP) Pulse Ox O2 Delivery O2 Flow Rate FiO2 09/30/16 09:28 Room Air 09/30/16 07:00 97.7 84 20 150/94 (112) 93 97.7 Labs Labs Laboratory Tests Test 09/29/16 08:50 White Blood Count 11.2 x10^3/uL (4.0-11.0) Red Blood Count 5.25 x10^6/uL (4.30-5.70) Hemoglobin 14.9 g/dL (13.0-17.5) Hematocrit 43.4 % (39.0-53.0) Mean Corpuscular Volume 83 fL (79-100) Mean Corpuscular Hemoglobin 28 pg (25-35) Mean Corpuscular Hemoglobin Concent 34 g/dL (31-37) Red Cell Distribution Width 14.1 % (11.5-14.5) Platelet Count 280 x10^3/uL (140-400) Neutrophils (%) (Auto) 81 % (31-73) Lymphocytes (%) (Auto) 10 % (24-48) Monocytes (%) (Auto) 9 % (0-9) Eosinophils (%) (Auto) 0 % (0-3) Basophils (%) (Auto) 0 % (0-3) Neutrophils # (Auto) 9.1 x10^3uL (1.8-7.7) Lymphocytes # (Auto) 1.1 x10^3/uL (1.0-4.8) Monocytes # (Auto) 1.0 x10^3/uL (0.0-1.1) Eosinophils # (Auto) 0.0 x10^3/uL (0.0-0.7) Basophils # (Auto) 0.0 x10^3/uL (0.0-0.2) Sodium Level 135 mmol/L (136-145) Potassium Level 4.6 mmol/L (3.5-5.1) Chloride Level 99 mmol/L (98-107) Carbon Dioxide Level 27 mmol/L (21-32) Anion Gap 9 (6-14) Blood Urea Nitrogen 14 mg/dL (8-26) Creatinine 0.9 mg/dL (0.7-1.3) Estimated GFR (Cockcroft-Gault) 84.2 Glucose Level 103 mg/dL (70-99) Calcium Level 8.1 mg/dL (8.5-10.1) Assessment/Plan Assessment/Plan 1. s/p sigmoid resection for sigmod CA, elective 2. Leukocytosis, likely reactive 3. ELevated BP/HTN PLAN: Add labetolol prn CLonidine PO prn if taking PO with no issues AGree with present GS plans Thanks for consulting! ROMEO DIAZ MD Sep 30, 2016 10:37
[2016-09-30 11:00] VITALS: BP 141/92
[2016-09-30] MEDS ORDERED: ENOXAPARIN 40 MG/0.4 ML SYRINGE. SQ ONE (13:30)
[2016-09-30 15:00] VITALS: BP 145/91
[2016-09-30 19:47] VITALS: BP 146/95
[2016-09-30] MEDS: FAMOTIDINE 20 MG/2 ML VIAL IVP SCH (20:12)
[2016-09-30 23:22] VITALS: BP 144/85
[2016-10-01] VITALS (7 sets, daily range): BP systolic 128–160; BP diastolic 34–101
[2016-10-01] MEDS: POTASSIUM CL 20MEQ-0.45% NACL 1,000 ML IV SCH ×3 (03:54→18:44)
[2016-10-01] MEDS: oxyCODONE/APAP 5/325 1 TAB TABLET PO PRN ×3 (03:55→18:53)
[2016-10-01 06:58] LABS: BASO % 0 % (0-3); EOS % 2 % (0-3); HEMATOCRIT 41.7 % (39.0-53.0); HEMOGLOBIN 13.6 g/dL (13.0-17.5); LYMPH # 1.5 x10^3/uL (1.0-4.8); LYMPH % 17 % (24-48); MEAN CORPUSCULAR HEMOGLOBIN 28 pg (25-35); MEAN CORPUSCULAR HGB CONC 33 g/dL (31-37); MEAN CORPUSCULAR VOLUME 85 fL (79-100); MONO % 11 % (0-9); NEUT % 69 % (31-73); PLATELET COUNT 253 x10^3/uL (140-400); RED BLOOD COUNT 4.91 x10^6/uL (4.30-5.70); RED CELL DISTRIBUTION WIDTH 14.5 % (11.5-14.5); WHITE BLOOD COUNT 8.5 x10^3/uL (4.0-11.0)
[2016-10-01] MEDS: ENOXAPARIN 40 MG/0.4 ML SYRINGE. SQ SCH (09:55)
--- NOTE | 2016-10-01 10:09 | PDOC ---
PROGRESS NOTES Chief Complaint Chief Complaint 1. s/p sigmoid resection for sigmod CA, elective POD # 2 2. Leukocytosis, likely reactive - resolved 3. 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: Per GS - main service CPM dc soon likely Vitals Vitals Vital Signs Date Time Temp Pulse Resp B/P (MAP) Pulse Ox O2 Delivery O2 Flow Rate FiO2 10/01/16 07:35 Room Air 10/01/16 07:00 98.8 88 16 131/96 (108) 94 98.8 Physical Exam General: Alert, Oriented X3, Cooperative, No acute distress Heart: Regular rate, Normal S1, Normal S2 Abdomen: Normal bowel sounds, Soft, No tenderness, Other (dressing dry) Extremities: No clubbing, No cyanosis, No edema, Normal pulses, No tenderness/ swelling Skin: No rashes, No breakdown Labs LABS Laboratory Tests Test 10/01/16 05:25 White Blood Count 8.5 x10^3/uL (4.0-11.0) Red Blood Count 4.91 x10^6/uL (4.30-5.70) Hemoglobin 13.6 g/dL (13.0-17.5) Hematocrit 41.7 % (39.0-53.0) Mean Corpuscular Volume 85 fL (79-100) Mean Corpuscular Hemoglobin 28 pg (25-35) Mean Corpuscular Hemoglobin Concent 33 g/dL (31-37) Red Cell Distribution Width 14.5 % (11.5-14.5) Platelet Count 253 x10^3/uL (140-400) Neutrophils (%) (Auto) 69 % (31-73) Lymphocytes (%) (Auto) 17 % (24-48) Monocytes (%) (Auto) 11 % (0-9) Eosinophils (%) (Auto) 2 % (0-3) Basophils (%) (Auto) 0 % (0-3) Neutrophils # (Auto) 5.9 x10^3uL (1.8-7.7) Lymphocytes # (Auto) 1.5 x10^3/uL (1.0-4.8) Monocytes # (Auto) 1.0 x10^3/uL (0.0-1.1) Eosinophils # (Auto) 0.2 x10^3/uL (0.0-0.7) Basophils # (Auto) 0.0 x10^3/uL (0.0-0.2) Albumin 2.5 g/dL (3.4-5.0) Review of Systems Review of Systems neg 14 pt system reviewed Comment Review of Relevant I have reviewed the following items alma (where applicable) has been applied. Labs Laboratory Tests Test 10/01/16 05:25 White Blood Count 8.5 x10^3/uL (4.0-11.0) Red Blood Count 4.91 x10^6/uL (4.30-5.70) Hemoglobin 13.6 g/dL (13.0-17.5) Hematocrit 41.7 % (39.0-53.0) Mean Corpuscular Volume 85 fL (79-100) Mean Corpuscular Hemoglobin 28 pg (25-35) Mean Corpuscular Hemoglobin Concent 33 g/dL (31-37) Red Cell Distribution Width 14.5 % (11.5-14.5) Platelet Count 253 x10^3/uL (140-400) Neutrophils (%) (Auto) 69 % (31-73) Lymphocytes (%) (Auto) 17 % (24-48) Monocytes (%) (Auto) 11 % (0-9) Eosinophils (%) (Auto) 2 % (0-3) Basophils (%) (Auto) 0 % (0-3) Neutrophils # (Auto) 5.9 x10^3uL (1.8-7.7) Lymphocytes # (Auto) 1.5 x10^3/uL (1.0-4.8) Monocytes # (Auto) 1.0 x10^3/uL (0.0-1.1) Eosinophils # (Auto) 0.2 x10^3/uL (0.0-0.7) Basophils # (Auto) 0.0 x10^3/uL (0.0-0.2) Albumin 2.5 g/dL (3.4-5.0) Laboratory Tests Test 10/01/16 05:25 White Blood Count 8.5 x10^3/uL (4.0-11.0) Red Blood Count 4.91 x10^6/uL (4.30-5.70) Hemoglobin 13.6 g/dL (13.0-17.5) Hematocrit 41.7 % (39.0-53.0) Mean Corpuscular Volume 85 fL (79-100) Mean Corpuscular Hemoglobin 28 pg (25-35) Mean Corpuscular Hemoglobin Concent 33 g/dL (31-37) Red Cell Distribution Width 14.5 % (11.5-14.5) Platelet Count 253 x10^3/uL (140-400) Neutrophils (%) (Auto) 69 % (31-73) Lymphocytes (%) (Auto) 17 % (24-48) Monocytes (%) (Auto) 11 % (0-9) Eosinophils (%) (Auto) 2 % (0-3) Basophils (%) (Auto) 0 % (0-3) Neutrophils # (Auto) 5.9 x10^3uL (1.8-7.7) Lymphocytes # (Auto) 1.5 x10^3/uL (1.0-4.8) Monocytes # (Auto) 1.0 x10^3/uL (0.0-1.1) Eosinophils # (Auto) 0.2 x10^3/uL (0.0-0.7) Basophils # (Auto) 0.0 x10^3/uL (0.0-0.2) Albumin 2.5 g/dL (3.4-5.0) Medications Current Medications Ondansetron HCl (Zofran) 4 mg PRN Q6HRS PRN IV NAUSEA/VOMITING; Start 09/24/16 at 07:00; Stop 09/24/16 at 18:00; Status DC Fentanyl Citrate (Fentanyl 2ml Vial) 25 mcg PRN Q5MIN PRN IV MILD PAIN; Start 09/24/16 at 07:00; Stop 09/24/16 at 18:00; Status DC Fentanyl Citrate (Fentanyl 2ml Vial) 50 mcg PRN Q5MIN PRN IV MODERATE PAIN Last administered on 09/24/16t 17:23; Start 09/24/16 at 07:00; Stop 09/24/16 at 18:00; Status DC Morphine Sulfate 1 mg PRN Q10MIN PRN IV SEVERE PAIN; Start 09/24/16 at 07:00; Stop 09/24/16 at 18:00; Status DC Ringer's Solution 1,000 ml @ 30 mls/hr Q24H IV Last administered on 09/24/16 17:23; Start 09/24/16 at 07:00; Stop 09/24/16 at 18:59; Status DC Lidocaine HCl 2 ml PRN 1X PRN ID PRIOR TO IV START; Start 09/24/16 at 07:00; Stop 09/24/16 at 18:00; Status DC Hydromorphone HCl (Dilaudid) 0.5 mg PRN Q10MIN PRN IV SEV PAIN, Second choice; Start 09/24/16 at 07:00; Stop 09/24/16 at 18:00; Status DC Prochlorperazine Edisylate (Compazine) 5 mg PACU PRN PRN IV NAUSEA, MRX1 Last administered on 09/24/16 16:36; Start 09/24/16 at 07:00; Stop 09/24/16 at 18:00 ; Status DC Cefoxitin Sodium 50 ml @ 100 mls/hr 1X PREOP PRN IV PRIOR TO PROCEDURE Last administered on 09/24/16 14:48; Start 09/24/16 at 06:00; Stop 09/24/16 at 18:00 ; Status DC Dexamethasone Sodium Phosphate (Decadron) 20 mg STK-MED ONCE .ROUTE ; Start at 11:23; Stop 09/24/16 at 11:24; Status DC Ondansetron HCl (Zofran) 4 mg STK-MED ONCE .ROUTE ; Start 09/24/16 at 11:23; Stop 09/24/16 at 11:24; Status DC Propofol 20 ml @ As Directed STK-MED ONCE IV ; Start 09/24/16 at 11:23; Stop at 11:24; Status DC Lidocaine HCl (Lidocaine Pf 2% Vial) 5 ml STK-MED ONCE .ROUTE ; Start 09/24/16 at 11:23; Stop 09/24/16 at 11:24; Status DC Desflurane (Suprane) 90 ml STK-MED ONCE IH ; Start 09/24/16 at 11:23; Stop 09/24 at 11:24; Status DC Fentanyl Citrate (Fentanyl 2ml Vial) 100 mcg STK-MED ONCE .ROUTE ; Start at 11:23; Stop 09/24/16 at 11:24; Status DC Rocuronium [place] (Zemuron) 50 mg STK-MED ONCE .ROUTE ; Start 09/24/16 at 11:23 ; Stop 09/24/16 at 11:24; Status DC Midazolam HCl (Versed) 2 mg STK-MED ONCE .ROUTE ; Start 09/24/16 at 12:18; Stop 09/24/16 at 12:19; Status DC Phenylephrine HCl 1 mg STK-MED ONCE IV ; Start 09/24/16 at 12:46; Stop 09/24/16 at 12:47; Status DC Ephedrine Sulfate 50 mg STK-MED ONCE IV ; Start 09/24/16 at 13:20; Stop at 13:21; Status DC Rocuronium [place] (Zemuron) 50 mg STK-MED ONCE .ROUTE ; Start 09/24/16 at 13:25 ; Stop 09/24/16 at 13:26; Status DC Lidocaine HCl (Xylocaine 2% Topical 30gm Tube) 30 roni STK-MED ONCE TP ; Start at 13:42; Stop 09/24/16 at 13:43; Status DC Glycopyrrolate (Robinul) 1 mg STK-MED ONCE .ROUTE ; Start 09/24/16 at 13:43; Stop 09/24/16 at 13:44; Status DC Neostigmine Methylsulfate 5 mg STK-MED ONCE .ROUTE ; Start 09/24/16 at 13:44; Stop 09/24/16 at 13:45; Status DC Morphine Sulfate 10 mg STK-MED ONCE .ROUTE ; Start 09/24/16 at 14:03; Stop 09/24 at 14:04; Status DC Cefazolin Sodium 0 ml @ As Directed STK-MED ONCE IV ; Start 09/24/16 at 14:49; Stop 09/24/16 at 14:50; Status Cancel Fentanyl Citrate (Fentanyl 2ml Vial) 100 mcg STK-MED ONCE .ROUTE ; Start at 15:30; Stop 09/24/16 at 15:31; Status DC Diphenhydramine HCl (Benadryl) 25 mg PRN Q6HRS PRN IV ITCHING; Start 09/24/16 at 15:30 Enoxaparin Sodium (Lovenox 40mg Syringe) 40 mg Q24H SQ Last administered on 10/01 09:55; Start 09/25/16 at 09:00 Sodium Chloride (Normal Saline Flush) 3 ml QSHIFT PRN IV AFTER MEDS AND BLOOD DRAWS; Start 09/24/16 at 15:30 Potassium Chloride/Sodium Chloride 1,000 ml @ 100 mls/hr Q10H IV Last administered on 10/01/16 03:54; Start 09/24/16 at 18:00 Hydromorphone HCl 30 ml @ 0 mls/hr CONT PRN PRN IV PROTOCOL Last administered on 09/28/16 23:30; Start 09/24/16 at 15:30; Stop 09/30/16 at 08:37; Status DC Ondansetron HCl (Zofran) 4 mg PRN Q6HRS PRN IV NAUESA, 1ST CHOICE Last administered on 09/30/16 17:05; Start 09/24/16 at 15:30 Labetalol HCl (Normodyne) 20 mg PRN Q2HR PRN IVP HYPERTENSION, SEE COMMENTS Last administered on 09/29/16 21:59; Start 09/29/16 at 21:45 Famotidine (Pepcid) 20 mg QHS IVP Last administered on 09/30/16 20:12; Start at 21:45 Oxycodone/ Acetaminophen (Percocet 5/325) 1 tab PRN Q4HRS PRN PO PAIN Last administered on 09/30/16 12:02; Start 09/30/16 at 08:45 Hydromorphone HCl (Dilaudid) 0.4 mg PRN Q4HRS PRN IVP PAIN; Start 09/30/16 at 08 :45 Oxycodone/ Acetaminophen (Percocet 5/325) 2 tab PRN Q4HRS PRN PO PAIN Last administered on 10/01/16 03:55; Start 09/30/16 at 09:45 Clonidine HCl (Catapres) 0.1 mg PRN Q1HR PRN PO HYPERTENSION, SEE COMMENTS; Start 09/30/16 at 09:45 Enoxaparin Sodium (Lovenox 40mg Syringe) 40 mg 1X ONCE SQ Last administered on 7/4/17at 13:23; Start 09/30/16 at 13:30; Stop 09/30/16 at 13:31; Status DC Active Scripts Active Reported No Known Medications Prior To Admisstion (Info) Each 1 Each Vitals/I & O Vital Sign - Last 24 Hours 09/30/16 09/30/16 09/30/16 09/30/16 11:00 12:02 13:04 15:00 Temp 97.7 97.6 97.7 97.6 Pulse 88 75 Resp 20 20 B/P (MAP) 141/92 (108) 145/91 (109) Pulse Ox 95 95 O2 Delivery Room Air Room Air Room Air Room Air 09/30/16 09/30/16 09/30/16 09/30/16 17:05 19:30 19:47 21:09 Temp 97.5 97.5 Pulse 87 Resp 18 B/P (MAP) 146/95 (112) Pulse Ox 93 93 O2 Delivery Room Air Room Air Room Air Room Air 09/30/16 10/01/16 10/01/16 10/01/16 23:22 03:35 03:55 05:00 Temp 96.6 97.7 96.6 97.7 Pulse 83 91 Resp 18 18 B/P (MAP) 144/85 (104) 130/97 (108) Pulse Ox 94 95 95 95 O2 Delivery Room Air Room Air Room Air Room Air 10/01/16 10/01/16 07:00 07:35 Temp 98.8 98.8 Pulse 88 Resp 16 B/P (MAP) 131/96 (108) Pulse Ox 94 O2 Delivery Room Air Room Air Intake and Output 09/30/16 09/30/16 10/01/16 15:00 23:00 07:00 Intake Total 1.4 ml Output Total 680 ml 575 ml Balance 1.4 ml -680 ml -575 ml ROMEO DIAZ MD Oct 01, 2016 10:08
--- NOTE | 2016-10-01 11:25 | PDOC ---
SURGICAL PROGRESS NOTE Subjective no new complaints passing a little gas Vital Signs Vital Signs Date Time Temp Pulse Resp B/P (MAP) Pulse Ox O2 Delivery O2 Flow Rate FiO2 10/01/16 07:35 Room Air 10/01/16 07:00 98.8 88 16 131/96 (108) 94 98.8 I&O Intake and Output 10/01/16 07:00 Intake Total 1.4 ml Output Total 1255 ml Balance -1253.6 ml IV Total 1.4 ml Output Urine Total 1200 ml Drainage Total 55 ml PATIENT HAS A MAYORGA: No General: Alert, Oriented X3, Cooperative, mild distress Abdomen: Soft, Other (dressing intact, some serosanguineous BRYSON output) Labs Laboratory Tests Test 10/01/16 05:25 White Blood Count 8.5 x10^3/uL (4.0-11.0) Red Blood Count 4.91 x10^6/uL (4.30-5.70) Hemoglobin 13.6 g/dL (13.0-17.5) Hematocrit 41.7 % (39.0-53.0) Mean Corpuscular Volume 85 fL (79-100) Mean Corpuscular Hemoglobin 28 pg (25-35) Mean Corpuscular Hemoglobin Concent 33 g/dL (31-37) Red Cell Distribution Width 14.5 % (11.5-14.5) Platelet Count 253 x10^3/uL (140-400) Neutrophils (%) (Auto) 69 % (31-73) Lymphocytes (%) (Auto) 17 % (24-48) Monocytes (%) (Auto) 11 % (0-9) Eosinophils (%) (Auto) 2 % (0-3) Basophils (%) (Auto) 0 % (0-3) Neutrophils # (Auto) 5.9 x10^3uL (1.8-7.7) Lymphocytes # (Auto) 1.5 x10^3/uL (1.0-4.8) Monocytes # (Auto) 1.0 x10^3/uL (0.0-1.1) Eosinophils # (Auto) 0.2 x10^3/uL (0.0-0.7) Basophils # (Auto) 0.0 x10^3/uL (0.0-0.2) Albumin 2.5 g/dL (3.4-5.0) Laboratory Tests Test 10/01/16 05:25 White Blood Count 8.5 x10^3/uL (4.0-11.0) Red Blood Count 4.91 x10^6/uL (4.30-5.70) Hemoglobin 13.6 g/dL (13.0-17.5) Hematocrit 41.7 % (39.0-53.0) Mean Corpuscular Volume 85 fL (79-100) Mean Corpuscular Hemoglobin 28 pg (25-35) Mean Corpuscular Hemoglobin Concent 33 g/dL (31-37) Red Cell Distribution Width 14.5 % (11.5-14.5) Platelet Count 253 x10^3/uL (140-400) Neutrophils (%) (Auto) 69 % (31-73) Lymphocytes (%) (Auto) 17 % (24-48) Monocytes (%) (Auto) 11 % (0-9) Eosinophils (%) (Auto) 2 % (0-3) Basophils (%) (Auto) 0 % (0-3) Neutrophils # (Auto) 5.9 x10^3uL (1.8-7.7) Lymphocytes # (Auto) 1.5 x10^3/uL (1.0-4.8) Monocytes # (Auto) 1.0 x10^3/uL (0.0-1.1) Eosinophils # (Auto) 0.2 x10^3/uL (0.0-0.7) Basophils # (Auto) 0.0 x10^3/uL (0.0-0.2) Albumin 2.5 g/dL (3.4-5.0) Assessment/Plan POD 7 LAR advance diet as tolerated continue ambulation Problems: ANÍBAL MUKHERJEE MD Oct 01, 2016 11:25
[2016-10-01] MEDS: ONDANSETRON PF 4 MG/2 ML VIAL. IV PRN ×2 (11:57→18:53)
[2016-10-01] MEDS: FAMOTIDINE 20 MG/2 ML VIAL IVP SCH (21:05)
[2016-10-02 03:00] VITALS: BP 133/88
[2016-10-02] MEDS: oxyCODONE/APAP 5/325 1 TAB TABLET PO PRN ×2 (06:35→12:35)
[2016-10-02 07:00] VITALS: BP 129/89
[2016-10-02] MEDS: ENOXAPARIN 40 MG/0.4 ML SYRINGE. SQ SCH (08:23)
--- NOTE | 2016-10-02 09:12 | PDOC ---
SURGICAL PROGRESS NOTE Subjective had some cereal this AM no n/v + flatus asking about going home Vital Signs Vital Signs Date Time Temp Pulse Resp B/P (MAP) Pulse Ox O2 Delivery O2 Flow Rate FiO2 10/02/16 07:56 Room Air 10/02/16 07:00 97.7 94 20 129/89 (102) 94 97.7 I&O Intake and Output 10/02/16 07:00 Intake Total 1266 ml Output Total 2301 ml Balance -1035 ml IV Total 1266 ml Output Urine Total 2301 ml General: Alert, Oriented X3, Cooperative, No acute distress Abdomen: Soft, Other (incision c/d/i, no erythema, keshav minimal serous fluid) Labs Laboratory Tests Test 10/01/16 05:25 White Blood Count 8.5 x10^3/uL (4.0-11.0) Red Blood Count 4.91 x10^6/uL (4.30-5.70) Hemoglobin 13.6 g/dL (13.0-17.5) Hematocrit 41.7 % (39.0-53.0) Mean Corpuscular Volume 85 fL (79-100) Mean Corpuscular Hemoglobin 28 pg (25-35) Mean Corpuscular Hemoglobin Concent 33 g/dL (31-37) Red Cell Distribution Width 14.5 % (11.5-14.5) Platelet Count 253 x10^3/uL (140-400) Neutrophils (%) (Auto) 69 % (31-73) Lymphocytes (%) (Auto) 17 % (24-48) Monocytes (%) (Auto) 11 % (0-9) Eosinophils (%) (Auto) 2 % (0-3) Basophils (%) (Auto) 0 % (0-3) Neutrophils # (Auto) 5.9 x10^3uL (1.8-7.7) Lymphocytes # (Auto) 1.5 x10^3/uL (1.0-4.8) Monocytes # (Auto) 1.0 x10^3/uL (0.0-1.1) Eosinophils # (Auto) 0.2 x10^3/uL (0.0-0.7) Basophils # (Auto) 0.0 x10^3/uL (0.0-0.2) Albumin 2.5 g/dL (3.4-5.0) Assessment/Plan s/p sigmoid resection see how he does with lunch, possible dc today Problems: LILI CARMONA [employer] Oct 02, 2016 09:12
[2016-10-02] MEDS ORDERED: OXYC1TAB7 PO (09:18)
--- NOTE | 2016-10-02 09:57 | PDOC ---
PROGRESS NOTES Chief Complaint Chief Complaint 1. s/p sigmoid resection for sigmod CA, elective POD # 2 2. Leukocytosis, likely reactive - resolved 3. ELevated BP/HTN, better History of Present Illness History of Present Illness Looks and feels good Tolerating PO PAin controlled, watching tv BP better (not high anymore) Off cotton factor PLAN: dc plans later Rx left in chart NO objections to dc Dc summ per primary service Vitals Vitals Vital Signs Date Time Temp Pulse Resp B/P (MAP) Pulse Ox O2 Delivery O2 Flow Rate FiO2 10/02/16 07:56 Room Air 10/02/16 07:00 97.7 94 20 129/89 (102) 94 97.7 Physical Exam General: Alert, Oriented X3, Cooperative, No acute distress Heart: Regular rate, Normal S1, Normal S2 Abdomen: Soft, Other (incision c/d/i, no erythema, keshav minimal serous fluid) Extremities: No clubbing, No cyanosis, No edema, Normal pulses, No tenderness/ swelling Skin: No rashes, No breakdown Review of Systems Review of Systems denies 14 pt system reviewed Comment Review of Relevant I have reviewed the following items alma (where applicable) has been applied. Labs Laboratory Tests Test 10/01/16 05:25 White Blood Count 8.5 x10^3/uL (4.0-11.0) Red Blood Count 4.91 x10^6/uL (4.30-5.70) Hemoglobin 13.6 g/dL (13.0-17.5) Hematocrit 41.7 % (39.0-53.0) Mean Corpuscular Volume 85 fL (79-100) Mean Corpuscular Hemoglobin 28 pg (25-35) Mean Corpuscular Hemoglobin Concent 33 g/dL (31-37) Red Cell Distribution Width 14.5 % (11.5-14.5) Platelet Count 253 x10^3/uL (140-400) Neutrophils (%) (Auto) 69 % (31-73) Lymphocytes (%) (Auto) 17 % (24-48) Monocytes (%) (Auto) 11 % (0-9) Eosinophils (%) (Auto) 2 % (0-3) Basophils (%) (Auto) 0 % (0-3) Neutrophils # (Auto) 5.9 x10^3uL (1.8-7.7) Lymphocytes # (Auto) 1.5 x10^3/uL (1.0-4.8) Monocytes # (Auto) 1.0 x10^3/uL (0.0-1.1) Eosinophils # (Auto) 0.2 x10^3/uL (0.0-0.7) Basophils # (Auto) 0.0 x10^3/uL (0.0-0.2) Albumin 2.5 g/dL (3.4-5.0) Medications Current Medications Ondansetron HCl (Zofran) 4 mg PRN Q6HRS PRN IV NAUSEA/VOMITING; Start 09/24/16 at 07:00; Stop 09/24/16 at 18:00; Status DC Fentanyl Citrate (Fentanyl 2ml Vial) 25 mcg PRN Q5MIN PRN IV MILD PAIN; Start 09/24/16 at 07:00; Stop 09/24/16 at 18:00; Status DC Fentanyl Citrate (Fentanyl 2ml Vial) 50 mcg PRN Q5MIN PRN IV MODERATE PAIN Last administered on 09/24/16 17:23; Start 09/24/16 at 07:00; Stop 09/24/16 at 18:00; Status DC Morphine Sulfate 1 mg PRN Q10MIN PRN IV SEVERE PAIN; Start 09/24/16 at 07:00; Stop 09/24/16 at 18:00; Status DC Ringer's Solution 1,000 ml @ 30 mls/hr Q24H IV Last administered on 09/24/16 17:23; Start 09/24/16 at 07:00; Stop 09/24/16 at 18:59; Status DC Lidocaine HCl 2 ml PRN 1X PRN ID PRIOR TO IV START; Start 09/24/16 at 07:00; Stop 09/24/16 at 18:00; Status DC Hydromorphone HCl (Dilaudid) 0.5 mg PRN Q10MIN PRN IV SEV PAIN, Second choice; Start 09/24/16 at 07:00; Stop 09/24/16 at 18:00; Status DC Prochlorperazine Edisylate (Compazine) 5 mg PACU PRN PRN IV NAUSEA, MRX1 Last administered on 09/24/16 16:36; Start 09/24/16 at 07:00; Stop 09/24/16 at 18:00 ; Status DC Cefoxitin Sodium 50 ml @ 100 mls/hr 1X PREOP PRN IV PRIOR TO PROCEDURE Last administered on 09/24/16t 14:48; Start 09/24/16 at 06:00; Stop 09/24/16 at 18:00 ; Status DC Dexamethasone Sodium Phosphate (Decadron) 20 mg STK-MED ONCE .ROUTE ; Start at 11:23; Stop 09/24/16 at 11:24; Status DC Ondansetron HCl (Zofran) 4 mg STK-MED ONCE .ROUTE ; Start 09/24/16 at 11:23; Stop 09/24/16 at 11:24; Status DC Propofol 20 ml @ As Directed STK-MED ONCE IV ; Start 09/24/16 at 11:23; Stop at 11:24; Status DC Lidocaine HCl (Lidocaine Pf 2% Vial) 5 ml STK-MED ONCE .ROUTE ; Start 09/24/16 at 11:23; Stop 09/24/16 at 11:24; Status DC Desflurane (Suprane) 90 ml STK-MED ONCE IH ; Start 09/24/16 at 11:23; Stop 09/24 at 11:24; Status DC Fentanyl Citrate (Fentanyl 2ml Vial) 100 mcg STK-MED ONCE .ROUTE ; Start at 11:23; Stop 09/24/16 at 11:24; Status DC Rocuronium [place] (Zemuron) 50 mg STK-MED ONCE .ROUTE ; Start 09/24/16 at 11:23 ; Stop 09/24/16 at 11:24; Status DC Midazolam HCl (Versed) 2 mg STK-MED ONCE .ROUTE ; Start 09/24/16 at 12:18; Stop 09/24/16 at 12:19; Status DC Phenylephrine HCl 1 mg STK-MED ONCE IV ; Start 09/24/16 at 12:46; Stop 09/24/16 at 12:47; Status DC Ephedrine Sulfate 50 mg STK-MED ONCE IV ; Start 09/24/16 at 13:20; Stop at 13:21; Status DC Rocuronium [place] (Zemuron) 50 mg STK-MED ONCE .ROUTE ; Start 09/24/16 at 13:25 ; Stop 09/24/16 at 13:26; Status DC Lidocaine HCl (Xylocaine 2% Topical 30gm Tube) 30 roni STK-MED ONCE TP ; Start at 13:42; Stop 09/24/16 at 13:43; Status DC Glycopyrrolate (Robinul) 1 mg STK-MED ONCE .ROUTE ; Start 09/24/16 at 13:43; Stop 09/24/16 at 13:44; Status DC Neostigmine Methylsulfate 5 mg STK-MED ONCE .ROUTE ; Start 09/24/16 at 13:44; Stop 09/24/16 at 13:45; Status DC Morphine Sulfate 10 mg STK-MED ONCE .ROUTE ; Start 09/24/16 at 14:03; Stop 09/24 at 14:04; Status DC Cefazolin Sodium 0 ml @ As Directed STK-MED ONCE IV ; Start 09/24/16 at 14:49; Stop 09/24/16 at 14:50; Status Cancel Fentanyl Citrate (Fentanyl 2ml Vial) 100 mcg STK-MED ONCE .ROUTE ; Start at 15:30; Stop 09/24/16 at 15:31; Status DC Diphenhydramine HCl (Benadryl) 25 mg PRN Q6HRS PRN IV ITCHING; Start 09/24/16 at 15:30 Enoxaparin Sodium (Lovenox 40mg Syringe) 40 mg Q24H SQ Last administered on 10/02 08:23; Start 09/25/16 at 09:00 Sodium Chloride (Normal Saline Flush) 3 ml QSHIFT PRN IV AFTER MEDS AND BLOOD DRAWS; Start 09/24/16 at 15:30 Potassium Chloride/Sodium Chloride 1,000 ml @ 50 mls/hr Q20H IV Last administered on 10/01/16 18:44; Start 09/24/16 at 18:00; Stop 10/02/16 at 07:32; Status DC Hydromorphone HCl 30 ml @ 0 mls/hr CONT PRN PRN IV PROTOCOL Last administered on 09/28/16 23:30; Start 09/24/16 at 15:30; Stop 09/30/16 at 08:37; Status DC Ondansetron HCl (Zofran) 4 mg PRN Q6HRS PRN IV NAUESA, 1ST CHOICE Last administered on 10/01/16 18:53; Start 09/24/16 at 15:30 Labetalol HCl (Normodyne) 20 mg PRN Q2HR PRN IVP HYPERTENSION, SEE COMMENTS Last administered on 09/29/16 21:59; Start 09/29/16 at 21:45 Famotidine (Pepcid) 20 mg QHS IVP Last administered on 10/01/16 21:05; Start at 21:45 Oxycodone/ Acetaminophen (Percocet 5/325) 1 tab PRN Q4HRS PRN PO PAIN Last administered on 09/30/16 12:02; Start 09/30/16 at 08:45 Hydromorphone HCl (Dilaudid) 0.4 mg PRN Q4HRS PRN IVP PAIN; Start 09/30/16 at 08 :45 Oxycodone/ Acetaminophen (Percocet 5/325) 2 tab PRN Q4HRS PRN PO PAIN Last administered on 10/02/16 06:35; Start 09/30/16 at 09:45 Clonidine HCl (Catapres) 0.1 mg PRN Q1HR PRN PO HYPERTENSION, SEE COMMENTS Last administered on 10/01/16 12:16; Start 09/30/16 at 09:45 Enoxaparin Sodium (Lovenox 40mg Syringe) 40 mg 1X ONCE SQ Last administered on 09/30/16 13:23; Start 09/30/16 at 13:30; Stop 09/30/16 at 13:31; Status DC Active Scripts Active Reported No Known Medications Prior To Admisstion (Info) Each 1 Each Vitals/I & O Vital Sign - Last 24 Hours 10/01/16 10/01/16 10/01/16 10/01/16 11:00 11:56 12:16 14:00 Temp 98.9 98.5 98.9 98.5 Pulse 89 89 103 Resp 16 14 B/P (MAP) 160/101 (120) 160/101 143/78 (99) Pulse Ox 94 94 O2 Delivery Room Air Room Air Room Air 10/01/16 10/01/16 10/01/16 10/01/16 15:00 18:53 19:00 19:55 Temp 98.6 97.7 98.6 97.7 Pulse 104 101 Resp 16 18 B/P (MAP) 128/89 (102) 139/94 (109) Pulse Ox 94 94 94 O2 Delivery Room Air Room Air Room Air 10/01/16 10/01/16 10/02/16 10/02/16 20:30 23:00 03:00 06:35 Temp 97.7 98.2 97.7 98.2 Pulse 97 56 Resp 18 18 B/P (MAP) 128/90 (103) 133/88 (103) Pulse Ox 93 93 93 O2 Delivery Room Air Room Air Room Air Room Air 10/02/16 10/02/16 10/02/16 07:00 07:00 07:56 Temp 97.7 97.7 Pulse 94 Resp 20 B/P (MAP) 129/89 (102) Pulse Ox 94 O2 Delivery Room Air Room Air Room Air Intake and Output 10/01/16 10/01/16 10/02/16 14:59 22:59 06:59 Intake Total 733 ml 533 ml Output Total 300 ml 1000 ml 1001 ml Balance -300 ml -267 ml -468 ml ROMEO DIAZ MD Oct 02, 2016 09:57
[2016-10-02 11:10] VITALS: BP 133/90
[2016-10-02] MEDS ORDERED: OXYC-314 PO (12:45)
[2016-10-02] MEDS ORDERED: FAMOTIDINE 20 MG TABLET. PO SCH (21:00)
--- NOTE | 2016-10-07 14:33 | PDOC4 ---
Operative Note Operative Note Date of surgery: September 24, 2016 Preoperative diagnosis: Cancer sigmoid colon Postop: Same Procedure: #1 rigid proctoscopy #2 sigmoid resection with primary anastomosis Surgeon: Everardo Sutton.: Jaci ENCARNACION Anesthesia: Gen. 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 Small bowel was run from ligament of Treitz to ileocecal valve without abnormality. Appendix unremarkable. The liver was smooth and sharp without palpable abnormality. Operative report: Patient brought to the operating suite and given a general endotracheal anesthetic. He was placed in the dorsal lithotomy position. Rodriguez catheter placed to dependent drainage. Digital rectal exam carried out. The proctoscope was placed in the anal canal and advanced under direct vision to approximately 12 cm from the anal verge where the large known mass was encountered. Scope removed. Abdomen and perineum prepped and draped in usual sterile fashion. A midline incision was made beginning just above the umbilicus extending down to the pubis. Abdomen carefully entered sharply extended with cautery taking care to avoid injury to abdominal contents. The abdomen was explored with results as noted above. Using an Omni self-retaining retractor for exposure we mobilized the sigmoid and distal descending colon off the lateral pelvic wall taking down the white line of Toldt. Care was taken to avoid injury to the left ureter. A section carried down into the pelvis where we encountered the mass. A location for dividing the bowel proximal to the cancer was chosen, skeletonized, and divided with a CATHY stapler. The mesocolon was then serially clamped divided and ligated with Vicryl ties. Dissection carried down into the pelvis. An area of uninvolved distal sigmoid/proximal rectum was skeletonized and divided with a contour stapler allowing removal of the specimen Specimen sent to pathology for inspection. Later it was returned showing adequate margins and presence of the large mass. As such an end-to-end anastomosis was created by placing a posterior row of interrupted 3-0 Vicryl sutures. Staple lines excised after occluding the proximal colon with an atraumatic clamp. Mucosal anastomosis created with a running lock 3-0 chromic first posteriorly then anteriorly. Clamp removed and the anterior anastomosis completed with interrupted 3-0 Vicryl suture. The rigid scope was inserted in the anal canal and with the colon occluded proximal to the anastomosis and the anastomosis submerged in saline and the bowel was insufflated from below. No leak identified. The bowel was decompressed , and scope removed. Gloves were changed. Pelvis was irrigated, evacuated, and checked for adequate hemostasis which was present. A 19 [place]ian round Rishi drain was brought through a lateral stab wound and left in the true pelvis for postoperative drainage A "ghost" ileostomy created with a large vessel loop brought out through the right lower quadrant abdominal wall taking care to avoid compromise of the distal small bowel. When a correct sponge count had been obtained and hemostasis was present and incision was closed in a single layer using looped 0 PDS in running fashion tied in the middle. The subcutaneous tissue was checked for adequate hemostasis and when present the skin incision was closed with a subcuticular 4-0 Monocryl and Steri-Strips. Dressing applied patient taken out of the lithotomy position. A postop form body film was negative for unexplained foreign-body. Patient awakened from his anesthetic and taken to the recovery room in satisfactory condition. ANÍBAL MUKHERJEE MD Oct 07, 2016 14:32
== END 2016-10-02 13:20 | disposition home or self-care (01) | DRG 331 ==
LOC: EDUNIT# 10:00 → OPSVCIP 10:21 → 4 NORTH 18:20
PROVIDERS: ADMIT Surgery; ATTEND Surgery
PROC: 0D1B0Z4 Bypass Ileum to Cutaneous, Open Approach (ICD-10-PCS; 2016-09-24)
PROC: 0DJD8ZZ Inspection of Lower Intestinal Tract, Via Natural or Artificial Opening Endoscopic (ICD-10-PCS; 2016-09-24)
PROC: 0DTN0ZZ Resection of Sigmoid Colon, Open Approach (ICD-10-PCS; principal; 2016-09-24 10:00)
DX: C18.7 Malignant neoplasm of sigmoid colon (principal); I10 Essential (primary) hypertension; D72.829 Elevated white blood cell count, unspecified; Z82.49 Family history of ischemic heart disease and other diseases of the circulatory system; Z79.899 Other long term (current) drug therapy; Z79.1 Long term (current) use of non-steroidal anti-inflammatories (NSAID); Z79.2 Long term (current) use of antibiotics; E66.3 Overweight
CPT/HCPCS: 36415; 74000; 80048; 82040; 82565; 85027; 86850; 86900; 86901; 88309; A6539; J0690; J0694; J0780; J1100; J1170; J1650; J2001; J2250; J2270; J2370; J2405; J2704; J2710; J3010; J3490; J7120; S0028; 97110; 97116; 97530; 97535